=== PATIENT | male | born 1950 | race Two or more races ===

== ENCOUNTER → 2024-06-08 | Outpatient (BNVA) | payer OTHER, MEDICAID, SELFPAY | END | disposition home or self-care (01) | PROVIDERS: PCP Family Medicine; Referring Provider Family Medicine; Visit Provider Urology | DX: N40.1 Benign prostatic hyperplasia with lower urinary tract symptoms (principal); N13.8 Other obstructive and reflux uropathy; R33.8 Other retention of urine; E11.9 Type 2 diabetes mellitus without complications; I10 Essential (primary) hypertension; E78.5 Hyperlipidemia, unspecified; F41.9 Anxiety disorder, unspecified; F34.1 Dysthymic disorder; E66.01 Morbid (severe) obesity due to excess calories; Z68.33 Body mass index [BMI] 33.0-33.9, adult; N40.2 Nodular prostate without lower urinary tract symptoms; I82.409 Acute embolism and thrombosis of unspecified deep veins of unspecified lower extremity; Z46.6 Encounter for fitting and adjustment of urinary device; K21.9 Gastro-esophageal reflux disease without esophagitis | CPT/HCPCS: 96372; 99202; J1580; G0463 ==

== ENCOUNTER 2024-07-22 17:57 | Emergency (ER) | payer OTHER, SELFPAY ==
[2024-07-22 18:18] VITALS: BP 154/78; PULSE 100; RESP 16; TEMP 37.2; O2SAT 95; BMI 32.3
--- NOTE | 2024-07-22 18:24 | XR_ITS ---
Examination: AP chest single view TECHNIQUE: AP portable upright chest single view. Examination date time: July 22, 2024 1840 hours Comparison June 01, 2023 INDICATIONS: Chest pain today. FINDINGS: Accentuation of basilar bronchovascular markings Normal heart size. No pulmonary edema Moderate osteopenia. IMPRESSION: Bibasilar bronchitis versus early bronchopneumonia, clinical correlation is advised
--- NOTE | 2024-07-22 18:24 | EKG_ITS ---
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
--- NOTE | 2024-07-22 18:24 | EDRME_ITS ---
Rapid Medical Screening Exam RME Arrival date/time: 07/22/24 17:57 Chief Complaint: Flu Like Symptoms Time Seen by Provider: 07/22/24 18:06 Vital signs: Vital Signs Temperature 98.9 F 07/22/24 18:18 Pulse Rate 100 07/22/24 18:18 Respiratory Rate 16 07/22/24 18:18 Blood Pressure 154/78 H 07/22/24 18:18 Pulse Oximetry (%) 95 07/22/24 18:18 Oxygen Delivery Method Room Air 07/22/24 18:18 [facility] Narrative: Shaking, body aches, chest pain, low back pain started today. No fever, cough or vomiting
[2024-07-22 19:04] LABS: Basophils # (Auto) 0.1 Thou/mm3 (0.0-0.2); Basophils % (Auto) 1 % (0-2.5); Eosinophils % (Auto) 0 % (0-10); Hematocrit 46.4 % (41.0-53.0); Hemoglobin 16.2 g/dL (13.5-16.0); Immature Granulocytes % (Auto) 0 % (0-0); Immature Granulocytes Auto 0.03 Thou/mm3 (0.00-0.00); Lymphocytes # (Auto) 0.3 Thou/mm3 (1.0-4.8); Lymphocytes % (Auto) 3 % (10-50); Mean Corpuscular HGB Conc 34.9 g/dl (31.0-37.0); Mean Corpuscular Volume 89 fL (80-100); Monocytes # (Auto) 0.6 Thou/mm3 (0.0-0.8); Monocytes % (Auto) 5 % (0-12); Neutrophils # (Auto) 11.8 Thou/mm3 (1.8-7.7); Neutrophils % (Auto) 92 % (37-80); Nucleated Red Blood Cell % 0 /100 WBC (0); Platelet Count 179 Thou/mm3 (140-440); Red Blood Count 5.22 Miln/mm3 (4.50-5.90); White Blood Count 12.8 Thou/mm3 (3.8-10.6)
[2024-07-22 19:23] LABS: B-Type Natriuretic Peptide 56 pg/mL (0-100)
[2024-07-22 19:24] LABS: Alanine Aminotransferase 22 U/L (10-49); Albumin, Serum 4.5 gm/dL (3.4-4.8); Albumin/Globulin Ratio 1.6 (1.2-2.2); Alkaline Phosphatase 80 U/L (46-116); Anion Gap 10 (7-16); Aspartate Amino Transferase 26 U/L (0-34); BUN/Creatinine Ratio 11 Ratio (12-20); Bilirubin,Total 1.8 mg/dL (0.3-1.2); Blood Urea Nitrogen 11 mg/dL (9-23); Calcium 10.2 mg/dL (8.3-10.6); Calcium (Corrected) 10.2 mg/dL (8.5-10.1); Carbon Dioxide 22.2 mMol/L (20.0-31.0); Chloride 106 mMol/L (98-107); Estimated Creatinine Clearance 66.3 mL/min (>60); Globulin 2.9 gm/dL (2.3-3.5); Glucose 164 mg/dL (74-106); Osmolality,Calculated 279 (275-295); Potassium 4.1 mMol/L (3.4-5.1); Sodium 138 mMol/L (136-145); Total Protein 7.4 gm/dL (5.7-8.2); Troponin I 0.031 ng/mL (0.0-0.045); eGFR > 60 See Note
--- NOTE | 2024-07-22 22:05 | PD.EDURI ---
Upper Respiratory Inf. RME/HPI General Chief Complaint: Flu Like Symptoms Stated Complaint: fever, body aches since 2pm Time Seen by Provider: 07/22/24 18:06 Arrival date/time: 07/22/24 17:57 RME / HPI RME / HPI Narrative: 74-year-old male patient with significant history of hypertension, BPH, came in for evaluation regarding flulike symptoms. Onset of symptoms since 3 PM today as fever body aches, sore throat, cough, generalized body weakness, severity moderate. Patient denies any chest pain on coughing. Denies any shortness of breath denies any other complaints no medication was taken prior to arrival. Related Data Home Medications ?Medication ?Instructions ?Recorded ?Confirmed apixaban 5 mg tablet (Eliquis) 5 mg PO BID 06/08/24 06/08/24 doxazosin 8 mg tablet 8 mg PO QDAY 06/08/24 06/08/24 hydrochlorothiazide 25 mg tablet 25 mg PO QDAY 06/08/24 06/08/24 lisinopril 20 mg tablet 20 mg PO QDAY 06/08/24 06/08/24 tamsulosin 0.4 mg capsule 0.8 mg PO QDAY 06/08/24 06/08/24 Previous Rx's ?Medication ?Instructions ?Recorded doxycycline hyclate 100 mg tablet 100 mg PO BID #14 tabs 07/22/24 Allergies Allergy/AdvReac Type Severity Reaction Status Date / Time Penicillins Allergy Intermediate UNKNOWN Verified 07/22/24 18:02 Review of Systems Review of Systems Narrative Review of Systems: Review of system reviewed and within normal limits except mentioned in HPI ED Exam Narrative Physical exam: VITAL SIGNS: Reviewed. GENERAL APPEARANCE: Alert and interactive, follows commands, no acute distress, HEAD AND FACE: Non-traumatic. ENT: PERRL, pink conjunctivitis, eyelid no trauma, Mucous membrane moist. NECK: Supple, nontender, no nuchal rigidity. CHEST: No tenderness, no crepitus, no paradoxical movement, no retractions. LUNGS: Clear, well ventilated, symmetric, no rales, no wheezing, no ronchi, no stridor, good breath sounds bilaterally. HEART: Regular rate, regular rhythm, no murmur, no gallops. ABDOMEN: Soft, positive bowel sounds, nondistended, no guarding, nontender, no rebound, no masses, RECTAL: Deferred. GENITAL: Deferred. NEUROLOGICAL: Gross motor function intact sensory function intact, Appropriate for age. MUSCULOSKELETAL: low back nontender, full range of motion. EXTREMITIES: Nontender, full range of motion. SKIN: Color pink, dry, no rash, no lacerations, no abrasions, no contusions. LYMPHATICS: Deferred. Course Quality Measures none Orders Category Date Time Status Bedside COVID-19 Antigen Test NOW Care 07/22/24 18:24 Active Bedside Influenza A&B Antigen Test NOW Care 07/22/24 18:25 Completed EKG (ED ONLY) *Do not use* NOW Care 07/22/24 18:25 Completed CXR [XR chest 1V] Stat Exams 07/22/24 18:24 Completed EKG (ED Only) Stat Exams 07/22/24 18:24 Draft BNP [B-Type Natriuretic Peptide] Stat Lab 07/22/24 18:34 Completed CBC Stat Lab 07/22/24 18:34 Completed CMP [Comprehensive Metabolic Panel] Stat Lab 07/22/24 18:34 Completed Troponin I Stat Lab 07/22/24 18:34 Completed Doxycycline [Vibramycin] Med 07/22/24 22:02 Once 100 mg PO X1 ONE Vital Signs Vital signs: Vital Signs Temperature 98.9 F 07/22/24 18:18 Pulse Rate 100 07/22/24 18:18 Respiratory Rate 16 07/22/24 18:18 Blood Pressure 154/78 H 07/22/24 18:18 Pulse Oximetry (%) 95 07/22/24 18:18 Oxygen Delivery Method Room Air 07/22/24 18:18 Upper Respiratory Infection MDM Narrative MDM Narrative:: 74-year-old male patient with significant history of hypertension, BPH, came in for evaluation regarding flulike symptoms. Onset of symptoms since 3 PM today as fever body aches, sore throat, cough, generalized body weakness, severity moderate. Patient denies any chest pain on coughing. Denies any shortness of breath denies any other complaints no medication was taken prior to arrival. Laboratory workup all came back unremarkable negative for COVID and flu. Except for WBC count of 12.8. Chest x-ray showed Bibasilar bronchitis versus early bronchopneumonia, clinical correlation is advised EKG showed sinus tachycardia, ventricular rate of 114 bpm, no ST segment ovation depression noted. Patient was given doxycycline in the emergency room for beginning pneumonia. Currently satting 95% on room air prior to discharge. Patient data External records reviewed:: None Clinical information provided by:: patient Social determinants that could affect healthcare access:: none Patient has the following chronic illnesses:: Hypertension How is presenting disease/condition affected by chronic disease/condition?: uneffected by Evaluation data The following diagnostics were reviewed and interpreted by me:: lab results, radiology exam(s) and EKG tracing(s) Lab and/or radiology exams considered but not ordered:: None Interpretation Summary: See results in MDM Medications / Prescriptions Medications or Prescriptions considered but not ordered:: None Medication administrations:: Medication Administration History Doxycycline Hyclate (Doxycycline 100 Mg Tablet) 100 mg PO X1 ONE Stop: 07/22/24 22:03 Doxycycline Consultations Consultation(s) initiated? (list below): No Diagnosis Upper Respiratory Differential Diagnosis: upper respiratory infection, influenza and other (Pneumonia) Most likely diagnosis given after review of the tests above:: Pneumonia Admission Indicated Admission indicated?: not indicated Admission Request Was there a request for admission?: No Disposition Plan Disposition Plan: Discharge Discharge Attestation Discharge Attestation: The patient was given an opportunity to ask questions and understood the discharge instructions. Discharge instructions specifically effects, indications for sooner follow up or return to the emergency department, and the expected course of current diagnosis. Patient condition: Stable Discharge Plan Plan Patient Disposition: HOME (Self Care) Disposition Comment: Stable Prescriptions/Referrals Prescriptions/Med Rec: New doxycycline hyclate 100 mg tablet 100 mg PO BID Qty: 14 0RF No Action doxazosin 8 mg tablet 8 mg PO QDAY lisinopril 20 mg tablet 20 mg PO QDAY hydrochlorothiazide 25 mg tablet 25 mg PO QDAY Eliquis 5 mg tablet 5 mg PO BID tamsulosin 0.4 mg capsule 0.8 mg PO QDAY Referrals: Tyrone Govea [Primary Care Provider] - In 1 week Problem List Clinical Impression: Pneumonia Patient/Caregiver Discharge Instructions Discharge Activity: activity as tolerated Education Materials: Treating Pneumonia Additional Instructions: Thank you for the opportunity for serving you today. You are stable for discharged . You are advised to: Follow-up with your PCP in 1 to 2 days Return to ED for worsening of symptoms Increase oral fluids Take medication as prescribed Print Language: Ecuadorean Stand Alone Forms: Corinne Award Info., Patient Portal Info Letter PA/ROUTE DRIVER SALESPERSON Supervising Physician ARTUR/AUGUSTA Supervising Physician: MD Quyen
[2024-07-22] MEDS: DOXYCYCLINE 100 MG TABLET PO (22:26)
== END 2024-07-22 22:30 | disposition home or self-care (01) ==
PROVIDERS: Physician Assistant; Emergency Provider Emergency Medicine; PCP Physician Assistant
DX: J18.9 Pneumonia, unspecified organism (principal); N40.0 Benign prostatic hyperplasia without lower urinary tract symptoms; I10 Essential (primary) hypertension
CPT/HCPCS: 36415; 71045; 80053; 83880; 84484; 85025; 87400; 87811; 93005; 99283; A9270

== ENCOUNTER 2024-08-23 14:31 | Emergency (ER) | payer OTHER, SELFPAY ==
--- NOTE | 2024-08-23 14:42 | XR_ITS ---
Examination: PA lateral chest 2 views TECHNIQUE: Upright PA lateral chest 2 views Exam date and time: August 23, 2024 1531 hours Comparison July 22, 2024 INDICATIONS: Chest pain beginning 4 days ago. FINDINGS: Accentuation basilar bronchovascular markings Normal heart size Increased AP dimension chest Kyphosis dorsal spine with prominent osteopenia IMPRESSION: Basilar bronchitis pattern
--- NOTE | 2024-08-23 14:42 | EKG_ITS ---
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1950 Requested By: Lito Phillips (BITUMEN PLANT OPERATOR) Order Number: [id number] Reading MD: Lito Phillips (BITUMEN PLANT OPERATOR) Measurements Intervals [place] Rate: 89 P: 31 [place]: 153 QRS: -26 QRSD: 97 T: 72 QT: 367 QTc: 449 Interpretive Statements SINUS RHYTHM LEFT VENTRICULAR HYPERTROPHY AND ST-T CHANGE [VOLTAGE CRITERIA PLUS ST/T ABNORMALITY] POSSIBLE SEPTAL MYOCARDIAL INFARCTION , OF INDETERMINATE AGE [30 ms Q WAVE IN V1/V2] Compared to ECG 07/22/2024 18:29:06 Myocardial infarct finding now present Sinus tachycardia no longer present ST (T wave) deviation still present /store/S0/[id number]/[id number].pdf
[2024-08-23 14:51] VITALS: BP 166/71; BP 184/82; PULSE 98; RESP 24; TEMP 37; O2SAT 95
--- NOTE | 2024-08-23 15:03 | PD.EDRME ---
Rapid Medical Screening Exam RME Arrival date/time: 08/23/24 14:31 74-year-old male presents to the emergency department for complaints of chest pain Chief Complaint: Chest Pain Vital signs: Vital Signs Temperature 98.6 F 08/23/24 14:51 Pulse Rate 98 08/23/24 14:51 Respiratory Rate 24 H 08/23/24 14:51 Blood Pressure 184/82 H 08/23/24 14:51 Pulse Oximetry (%) 95 08/23/24 14:51 Oxygen Delivery Method Room Air 08/23/24 14:51
[2024-08-23 15:30] LABS: Basophils # (Auto) 0.1 Thou/mm3 (0.0-0.2); Basophils % (Auto) 1 % (0-2.5); Eosinophils # (Auto) 0.1 Thou/mm3 (0.0-0.5); Eosinophils % (Auto) 2 % (0-10); Hematocrit 44.3 % (41.0-53.0); Hemoglobin 15.4 g/dL (13.5-16.0); Immature Granulocytes % (Auto) 0 % (0-0); Immature Granulocytes Auto 0.01 Thou/mm3 (0.00-0.00); Lymphocytes # (Auto) 1.5 Thou/mm3 (1.0-4.8); Lymphocytes % (Auto) 26 % (10-50); Mean Corpuscular HGB Conc 34.8 g/dl (31.0-37.0); Mean Corpuscular Hemoglobin 31.1 pg (25.0-35.0); Mean Corpuscular Volume 90 fL (80-100); Monocytes # (Auto) 0.5 Thou/mm3 (0.0-0.8); Monocytes % (Auto) 9 % (0-12); Neutrophils # (Auto) 3.6 Thou/mm3 (1.8-7.7); Neutrophils % (Auto) 63 % (37-80); Nucleated Red Blood Cell % 0 /100 WBC (0); Platelet Count 187 Thou/mm3 (140-440); RDW Standard Deviation 41.3 fL (35.1-43.9); Red Blood Count 4.95 Miln/mm3 (4.50-5.90); White Blood Count 5.8 Thou/mm3 (3.8-10.6)
[2024-08-23 15:40] LABS: Prothrombin Time 10.9 Seconds (9.0-12.2)
[2024-08-23 15:42] LABS: B-Type Natriuretic Peptide 52 pg/mL (0-100)
[2024-08-23 15:46] LABS: Alanine Aminotransferase 18 U/L (10-49); Albumin, Serum 4.6 gm/dL (3.4-4.8); Albumin/Globulin Ratio 1.6 (1.2-2.2); Alkaline Phosphatase 79 U/L (46-116); Anion Gap 9 (7-16); Aspartate Amino Transferase 21 U/L (0-34); BUN/Creatinine Ratio 11 Ratio (12-20); Bilirubin,Total 1.7 mg/dL (0.3-1.2); Blood Urea Nitrogen 10 mg/dL (9-23); Calcium 9.5 mg/dL (8.3-10.6); Calcium (Corrected) 9.5 mg/dL (8.5-10.1); Carbon Dioxide 24.1 mMol/L (20.0-31.0); Chloride 108 mMol/L (98-107); Creatinine (Component) 0.9 mg/dL (0.6-1.3); Globulin 2.9 gm/dL (2.3-3.5); Glucose 136 mg/dL (74-106); Magnesium 2.5 mg/dL (1.6-2.6); Osmolality,Calculated 282 (275-295); Potassium 3.8 mMol/L (3.4-5.1); Sodium 141 mMol/L (136-145); Total Protein 7.5 gm/dL (5.7-8.2); Troponin I 0.027 ng/mL (0.0-0.045); eGFR > 60 See Note
[2024-08-23 19:07] LABS: Troponin I 0.025 ng/mL (0.0-0.045)
--- NOTE | 2024-08-23 19:45 | PD.EDCHEST ---
ED Chest Pain RME/HPI General Chief Complaint: Chest Pain Stated Complaint: CX PAIN WITH DIFFICULY SWALLOWING Time Seen by Provider: 08/23/24 19:39 Arrival date/time: 08/23/24 14:31 RME / HPI RME / HPI narrative: 08/23/24 14:31 74-year-old male presents to the emergency department for complaints of chest pain ------- Dr. Milligan?s Main ED Evaluation: 74yo male with a history of HTN presents to the ED for a chief complaint of intermittent chest pain x 4 days. No radiation or migration. Patient states he's had similar chest pain when he had pneumonia. Patient endorses having a dry cough. He denies any fever, chills, N/V/D, shortness of breath, BLE swelling or any other associated symptoms. Related Data Home Medications ?Medication ?Instructions ?Recorded ?Confirmed apixaban 5 mg tablet (Eliquis) 5 mg PO BID 06/08/24 06/08/24 doxazosin 8 mg tablet 8 mg PO QDAY 06/08/24 06/08/24 hydrochlorothiazide 25 mg tablet 25 mg PO QDAY 06/08/24 06/08/24 lisinopril 20 mg tablet 20 mg PO QDAY 06/08/24 06/08/24 tamsulosin 0.4 mg capsule 0.8 mg PO QDAY 06/08/24 06/08/24 Previous Rx's ?Medication ?Instructions ?Recorded doxycycline hyclate 100 mg tablet 100 mg PO BID #14 tabs 07/22/24 Allergies Allergy/AdvReac Type Severity Reaction Status Date / Time Penicillins Allergy Intermediate UNKNOWN Verified 08/23/24 14:36 Review of Systems Review of Systems Systems Reviewed: All systems reviewed, normal except as documented Past Medical History Past Medical History NEUROLOGIC: Negative Neurological Disorders CARDIAC: Positive Cardiac Disorders, Hypercholesterolemia, Hypertension and Varicose Veins; Negative Congestive Heart Failure RESPIRATORY: Negative Chronic Obstructive Pulmonary Disease (COPD) GASTROINTESTINAL: Positive Gastrointestinal Disorders and Gastroesophageal Reflux Disease GENITOURINARY: Negative Genitourinary Disorders or Renal Disease MUSCULOSKELETAL: Negative Musculoskeletal Disorders ENDOCRINE: Positive Endocrine Disorders; Negative Diabetes Mellitus Type 1 or Diabetes Mellitus Type 2 HEMATOLOGIC: Negative Blood Disorders Surgical History SURGICAL: Negative Coronary Stent Social History SMOKING STATUS: Never smoker ED Exam Narrative Physical exam: GENERAL APPEARANCE: alert and oriented x 4, well-developed, well-nourished, no acute distress VITALS: All vitals were reviewed and the pulse ox is 95% on room air, which is normal according to my interpretation. HEENT: Normocephalic, atraumatic; pupils equal, round, reactive to light; EOMI; mucous membranes pink, moist; oropharynx clear NECK: Supple LUNGS: CTABL; no wheezes, no rales, no rhonchi HEART: Regular rate, regular rhythm; normal S1, S2; no murmurs ABDOMEN: non distended; normal BS; soft, no tenderness, no guarding, no rebound; no masses, no organomegaly, no hernia BACK: no CVA tenderness EXTREMITIES: atraumatic; no edema NEUROLOGIC: awake; alert and oriented x4; cranial nerves II-XII grossly intact; no focal sensory or motor deficits PSYCHIATRIC: appropriate mood and affect SKIN: warm, dry, normal color; no rashes Course Course Course Narrative: CXR is ordered for determining the etiology of chest pain. Quality Measures none Orders Category Date Time Status EKG (ED ONLY) *Do not use* NOW Care 08/23/24 14:42 Completed EKG (ED Only) Stat Exams 08/23/24 14:42 Draft XR chest 2V Stat Exams 08/23/24 14:42 Completed B-Type Natriuretic Peptide Stat Lab 08/23/24 15:06 Completed CBC Stat Lab 08/23/24 15:06 Completed Comprehensive Metabolic Panel Stat Lab 08/23/24 15:06 Completed Magnesium Stat Lab 08/23/24 15:06 Completed Partial Thromboplastin Time Stat Lab 08/23/24 15:06 Completed Prothrombin Time with INR Stat Lab 08/23/24 15:06 Completed Troponin I Stat Lab 08/23/24 15:06 Completed Troponin I Stat Lab 08/23/24 18:18 Completed Vital Signs Vital signs: Vital Signs Temperature 98.6 F 08/23/24 14:51 Pulse Rate 98 08/23/24 14:51 Respiratory Rate 24 H 08/23/24 14:51 Blood Pressure 184/82 H 08/23/24 14:51 Pulse Oximetry (%) 95 08/23/24 14:51 Oxygen Delivery Method Room Air 08/23/24 14:51 Chest Pain MDM Narrative MDM Narrative:: Scribe Attestation: 08/23/24 Carolyn Patel am scribing for and in the presence of Dr. Milligan. HEART score is 3, indicating the patient is at a low risk for a cardiac event. CXR shows bronchitis. Patient is stable to be discharged home. Patient data External records reviewed:: [facility] previous records (Per chart review, patient was seen here on 07/22/24 for pneumonia.) Clinical information provided by:: patient Social determinants that could affect healthcare access:: none Patient has the following chronic illnesses:: none How is presenting disease/condition affected by chronic disease/condition?: no chronic disease Evaluation data The following diagnostics were reviewed and interpreted by me:: lab results, radiology exam(s) and EKG tracing(s) Lab and/or radiology exams considered but not ordered:: none Interpretation Summary: CBC is normal, PT and INR are normal, PTT is normal, according to my interpretation. EKG done at 1452, NSR, rate of 89, left axis deviation, no ectopy, Q-waves in V1 and V2, no STEMI, according to my interpretation. [facility] Report Signed Patient: JORDI CA Record#: [id number] Birthdate: 1950 Age/Sex: 74 / M Location: [facility] Attending Dr: Ordering Physician: Alan (FLORINDA)Lito NP Date of Service: 08/23/24 Procedure(s): XR chest 2V Accession Number(s): [id number] cc: Alan RICO)Lito NP; Javier Llanos MD; NO PRIMARY/FAMILY,PHYSICIAN~ Examination: PA lateral chest 2 views TECHNIQUE: Upright PA lateral chest 2 views Exam date and time: August 23, 2024 1531 hours Comparison July 22, 2024 INDICATIONS: Chest pain beginning 4 days ago. FINDINGS: Accentuation basilar bronchovascular markings Normal heart size Increased AP dimension chest Kyphosis dorsal spine with prominent osteopenia IMPRESSION: Basilar bronchitis pattern Dictated By: Javier Llanos MD Signed By: <Electronically signed by Javier Llanos MD in OV> 08/23/24 1553 Medications / Prescriptions Medications or Prescriptions considered but not ordered:: none Medication administrations:: see above, if any Consultations Consultation(s) initiated? (list below): No Diagnosis Chest Pain Differential Diagnosis: other (NSTEMI, STEMI, angina, pneumonia, bronchitis) Most likely diagnosis given after review of the tests above:: see clinical impression below Admission Indicated Admission indicated?: not indicated Admission Request Was there a request for admission?: No Disposition Plan Disposition Plan: Discharge Discharge Attestation Discharge Attestation: The patient and all family members were given an opportunity to ask questions and understood the discharge instructions. Discharge instructions specifically effects, indications for sooner follow up or return to the emergency department, and the expected course of current diagnosis. Patient condition: Stable Discharge Plan Plan Patient Disposition: HOME (Self Care) Disposition Comment: Stable for discharge home Patient condition on transfer: Stable Prescriptions/Referrals Prescriptions/Med Rec: No Action doxazosin 8 mg tablet 8 mg PO QDAY lisinopril 20 mg tablet 20 mg PO QDAY hydrochlorothiazide 25 mg tablet 25 mg PO QDAY Eliquis 5 mg tablet 5 mg PO BID tamsulosin 0.4 mg capsule 0.8 mg PO QDAY doxycycline hyclate 100 mg tablet 100 mg PO BID Qty: 14 0RF Referrals: Diana Swan MD [Physician] - In 1 week (Was seen in the emergency department 08/23 with bronchitis and chest pain. Low risk on the heart score.) Problem List Clinical Impression: Bronchitis, Chest pain, Painful cough Patient/Caregiver Discharge Instructions Discharge Activity: activity as tolerated Education Materials: ED Bronchitis, No Antibiotic (Adult), ED Chest Pain, Uncertain Cause Additional Instructions: Please return to the emergency department if you have any worsening or any further medical problems and we will help you. Otherwise you should follow-up with your primary care doctor within the next several days I have given you the number for Dr. Swan. He is our nut [facility] Please give his office a call and make a follow-up appointment. Print Language: Dominican Stand Alone Forms: Corinne Award Info., Patient Portal Info Letter
== END 2024-08-23 20:04 | disposition home or self-care (01) ==
PROVIDERS: Nurse Practitioner Primary Care; Emergency Provider Emergency Medicine
DX: J40 Bronchitis, not specified as acute or chronic (principal); R94.31 Abnormal electrocardiogram [ECG] [EKG]; I10 Essential (primary) hypertension; E78.00 Pure hypercholesterolemia, unspecified; Z79.01 Long term (current) use of anticoagulants
CPT/HCPCS: 36415; 71046; 80053; 83735; 83880; 84484; 85025; 85610; 85730; 93005; 99283

== ENCOUNTER → 2024-10-03 | Outpatient (BNVA) | payer OTHER, SELFPAY | END | disposition home or self-care (01) | PROVIDERS: PCP Physician Assistant; Referring Provider Physician Assistant; Visit Provider Urology | DX: N40.1 Benign prostatic hyperplasia with lower urinary tract symptoms (principal); N13.8 Other obstructive and reflux uropathy; R33.8 Other retention of urine; R35.0 Frequency of micturition; E11.9 Type 2 diabetes mellitus without complications; I10 Essential (primary) hypertension; I25.10 Atherosclerotic heart disease of native coronary artery without angina pectoris; E78.00 Pure hypercholesterolemia, unspecified; K21.9 Gastro-esophageal reflux disease without esophagitis | CPT/HCPCS: 81003; 99212; G0463 ==

== ENCOUNTER → 2024-11-10 | Outpatient (BNVA) | payer OTHER, SELFPAY | END | disposition home or self-care (01) | PROVIDERS: PCP Physician Assistant; Referring Provider Physician Assistant; Visit Provider Urology | DX: N40.1 Benign prostatic hyperplasia with lower urinary tract symptoms (principal); N13.8 Other obstructive and reflux uropathy; I10 Essential (primary) hypertension; E78.00 Pure hypercholesterolemia, unspecified; K21.9 Gastro-esophageal reflux disease without esophagitis | CPT/HCPCS: 99212; G0463 ==

== ENCOUNTER → 2024-11-16 | Outpatient (BNVA) | payer OTHER, SELFPAY | END | disposition home or self-care (01) | PROVIDERS: PCP Physician Assistant; Referring Provider Physician Assistant; Visit Provider Urology | DX: N40.1 Benign prostatic hyperplasia with lower urinary tract symptoms (principal); R39.12 Poor urinary stream; I10 Essential (primary) hypertension; E78.00 Pure hypercholesterolemia, unspecified; K21.9 Gastro-esophageal reflux disease without esophagitis | CPT/HCPCS: 51741; 51798 ==

== ENCOUNTER → 2024-12-05 | Outpatient (BNVA) | payer OTHER, SELFPAY | END | disposition home or self-care (01) | PROVIDERS: PCP Physician Assistant; Referring Provider Physician Assistant; Visit Provider Urology | DX: N40.1 Benign prostatic hyperplasia with lower urinary tract symptoms (principal); N13.8 Other obstructive and reflux uropathy; I10 Essential (primary) hypertension; E78.00 Pure hypercholesterolemia, unspecified; K21.9 Gastro-esophageal reflux disease without esophagitis | CPT/HCPCS: 76872 ==

== ENCOUNTER → 2024-12-15 | Outpatient (BNVA) | payer OTHER, MEDICAID, SELFPAY | END | disposition home or self-care (01) | PROVIDERS: PCP Physician Assistant; Referring Provider Physician Assistant; Visit Provider Urology | DX: N32.89 Other specified disorders of bladder (principal); N40.1 Benign prostatic hyperplasia with lower urinary tract symptoms; N13.8 Other obstructive and reflux uropathy; I10 Essential (primary) hypertension; E78.00 Pure hypercholesterolemia, unspecified | CPT/HCPCS: 52000; 81003; 96372; A4217; A4649; C1894; J1580; A9270 ==

== ENCOUNTER → 2025-03-23 | Outpatient (BNVA) | payer OTHER, MEDICAID, SELFPAY | END | disposition home or self-care (01) | PROVIDERS: PCP Physician Assistant; Referring Provider Physician Assistant; Visit Provider Urology | DX: N40.1 Benign prostatic hyperplasia with lower urinary tract symptoms (principal); I10 Essential (primary) hypertension | CPT/HCPCS: 99212; G0463 ==